=== PATIENT | male | born 1985 | race African-American/Black ===

== ENCOUNTER 2017-12-30 12:47 | Emergency (ER) | payer MEDICAID, OTHER ==
[~2017-12-30] VITALS: Ht 167.6 cm; Wt 33.1 kg
[2017-12-30] MEDS ORDERED: PERTUSS(ACELL),DIPH,TET VAC/PF 0.5 ML VIAL IM ONE (15:30)
[2017-12-30] MEDS ORDERED: LIDOCAINE HCL 1% 20 ML VIAL INJ ONE (15:30)
[2017-12-30] MEDS ORDERED: LIDOCAINE HCL/PF 1% 5 ML VIAL INJ ONE (15:45)
[2017-12-30 16:40] VITALS: BP 124/67
== END 2017-12-30 16:53 | disposition home or self-care (01) ==
LOC: EMS 12:49
DX: L02.31 Cutaneous abscess of buttock (principal)
CPT/HCPCS: 10060; 90471; 90715; 99283; J3490

== ENCOUNTER 2019-09-11 05:08 | Emergency (ER) | payer MEDICAID ==
[~2019-09-11] VITALS: Ht 167.6 cm; Wt 68.2 kg
[2019-09-11] MEDS ORDERED: AMOX TR/POT CLAV 875 MG/125 MG TABLET PO ONE (06:30)
[2019-09-11 06:45] VITALS: BP 132/82
== END 2019-09-11 06:58 | disposition home or self-care (01) ==
LOC: EMS 05:08
DX: J02.9 Acute pharyngitis, unspecified (principal); J32.9 Chronic sinusitis, unspecified

== ENCOUNTER 2021-07-26 23:42 | Emergency (ER) | payer SELFPAY ==
[~2021-07-26] VITALS: Ht 167.6 cm; Wt 71.3 kg
[2021-07-26 23:51] VITALS: BP 135/77
[2021-07-27] MEDS ORDERED: PERTUSS(ACELL),DIPH,TET VAC/PF 0.5 ML SYRINGE IM. ONE (00:45)
[2021-07-27] MEDS ORDERED: BACITRACIN 0.9 GM PACKET OINTMENT TP ONE (00:45)
[2021-07-27] MEDS ORDERED: AMOX TR/POT CLAV 875 MG/125 MG TABLET PO ONE (01:15)
== END 2021-07-27 02:54 | disposition home or self-care (01) ==
LOC: EMS 23:43
DX: S01.81XA Laceration without foreign body of other part of head, initial encounter (principal); F12.90 Cannabis use, unspecified, uncomplicated; Z88.6 Allergy status to analgesic agent; Z88.5 Allergy status to narcotic agent; W54.0XXA Bitten by dog, initial encounter; Y93.89 Activity, other specified; Y92.89 Other specified places as the place of occurrence of the external cause; Y99.8 Other external cause status
CPT/HCPCS: 90471; 90715; 99283